=== PATIENT | male | born 1950 | race Caucasian/White ===

== ENCOUNTER 2017-10-17 08:03 | Outpatient (CLI) | payer MEDICARE, OTHER ==
--- NOTE | 2017-10-17 08:18 | RAD ---
2 VIEWS LEFT HIP: Date: 10/17/17 COMPARISON: None. HISTORY: Left hip pain. FINDINGS: Two views of the left hip show no evidence of acute fracture or dislocation. There is mild joint spac e narrowing consistent with osteoarthritis. No soft tissue swelling is seen. IMPRESSION: Mild left hip osteoarthritis. POS: JOHN
== END 2017-10-17 08:04 | disposition home or self-care (01) ==
LOC: RAD-FRANK 08:03
PROVIDERS: ATTEND Nurse Practitioner Family
DX: M25.552 Pain in left hip (principal); M16.12 Unilateral primary osteoarthritis, left hip

== ENCOUNTER 2020-04-04 08:07 | Outpatient (CLI) | payer MEDICARE ==
--- NOTE | 2020-04-04 08:18 | RAD ---
XR Shoulder Rt 3 View STANDARD HISTORY: Right shoulder pain FINDINGS: No acute fracture or dislocation is identified. There are postop changes of rotator cuff repair and d egenerative changes in the acromioclavicular joint. There is soft tissue calcification in the rotator cuff, consistent with calcific tendinosis.
== END 2020-04-04 08:08 | disposition home or self-care (01) ==
LOC: RAD-FRANK 08:07
PROVIDERS: ATTEND Nurse Practitioner Family
DX: M25.511 Pain in right shoulder (principal)